=== PATIENT | female | born 1955 | race Caucasian/White ===

== ENCOUNTER → 2019-02-02 | Outpatient (CLI) | payer MEDICARE, BC ==
--- NOTE | 2019-02-02 15:23 | Diagnostic Imaging Report ---
EXAMINATION: MRI of the thoracic spine without contrast HISTORY: Mid back pain COMPARISON: None. TECHNIQUE: Sagittal T1 without contrast, T2, and STIR; axial T2. Coronal T2. FINDINGS: Curvature: Normal kyphosis. Vertebrae: No evidence of recent fracture, infection, or neoplasm. Small benign hemangiomas in the right posterolateral T7 vertebral body. Discs: No significant degenerative changes, no disc herniations, no spinal canal or foraminal stenosis. Spinal canal: No mass or abnormal blood vessels. Spinal cord: Normal size and signal intensity. Foramina: Unremarkable. Paraspinal soft tissues: Unremarkable. Proximal ribs: No abnormal signal intensity. IMPRESSION: No thoracic spine abnormalities to explain the patient's symptoms. Signed by: Dr. Sharona Mendez M.D. on 02/02/2019 3:20 PM
--- NOTE | 2019-02-02 15:36 | Diagnostic Imaging Report ---
EXAMINATION: MRI of the lumbar spine without contrast HISTORY: Mid low back pain for the last 1 1/2 months COMPARISON: None. TECHNIQUE: Sagittal T1, T2, STIR; axial T2 and proton density. FINDINGS: It is assumed that there are 5 lumbar vertebrae. Curvature/Alignment: Normal lordosis. Vertebrae: -Prominent chronic depression of the inferior endplate of L3 with decreased vertebral body height centrally by approximately 40%, no posterior retropulsion or canal stenosis, this may represent sequela from remote trauma, relation with past medical history in comparison to prior studies if available is recommended. -Otherwise no evidence of recent fracture, infection, or neoplasm. Conus: Normal, terminating at L1 Cauda equina: Unremarkable. Lower thoracic: Unremarkable. Paraspinal soft tissues: Unremarkable. Degenerative changes: L1-L2: Unremarkable. L2-L3: Minimal symmetric disc bulge without spinal canal or foraminal stenosis. L3-L4: Minimal symmetric disc bulge without canal or foraminal stenosis. L4-L5: Decreased disc height and T2 signal intensity, asymmetric to the right disc osteophyte complex formation. Mild bilateral facet arthrosis. Right laminectomy defect with expected minimal retraction of the thecal sac, no evidence of recurrent disc herniation or significant scar tissue formation at this level. Mild right foraminal narrowing. No evidence of neurocompression. L5-S1: Mild decreased disc height and T2 signal intensity as well as facet arthrosis. Left laminotomy defect, no disc herniation or scar tissue formation. IMPRESSION: 1. Mild degenerative foraminal stenosis on the right at L4-L5. No evidence of neurocompression. 2. Postoperative changes at L4-5 and L5-S1 without recurrent disc herniation or scar tissue formation. 3. Mild chronic central compression deformity of the L3 vertebral body as detailed above. No acute fractures. Signed by: Dr. Sharona Mendez M.D. on 02/02/2019 3:32 PM
== END ==
LOC: MRI 13:15
PROVIDERS: ATTEND Internal Medicine
DX: M54.5 Low back pain (principal); M54.6 Pain in thoracic spine
CPT/HCPCS: 72146; 72148

== ENCOUNTER → 2019-12-04 | Outpatient (CLI) | payer MEDICARE, BC, OTHER | LOC: DX 10:56 | PROVIDERS: ATTEND Internal Medicine | DX: K21.00 Gastro-esophageal reflux disease with esophagitis, without bleeding (principal); Z11.59 Encounter for screening for other viral diseases | CPT/HCPCS: 74246; U0002 ==

== ENCOUNTER → 2022-08-04 | Day surgery (SDC) | payer MEDICARE, BC ==
[2022-07-30 13:57] LABS: BASOPHILS # (AUTO) 0.1 (0.0-0.1); BASOPHILS % 1.2 % (0.0-1.0); EOSINOPHILS # (AUTO) 0.3 (0.0-0.4); EOSINOPHILS % 5.2 % (0.0-6.0); HEMOGLOBIN 11.7 g/dL (12.0-16.0); LYMPHOCYTES # (AUTO) 1.5 (1.0-3.2); LYMPHOCYTES % 31.8 % (18.0-39.1); MEAN CORPUSCULAR HEMOGLOBIN 25.7 pg (28-32); MEAN CORPUSCULAR HGB CONC 31.6 g/dL (31-35); MEAN CORPUSCULAR VOLUME 81.1 fL (81-99); MONOCYTES # (AUTO) 0.3 (0.2-0.8); MONOCYTES % 6.9 % (4.4-11.3); NEUTROPHILS # (AUTO) 2.6 (2.1-6.9); NEUTROPHILS % 54.9 % (38.7-80.0); PLATELET COUNT 376 x10e3/uL (140-360); RED BLOOD COUNT 4.56 x10e6/uL (3.6-5.1); RED CELL DISTRIBUTION WIDTH 14.7 % (11.7-14.4)
[~2022-08-04] MED LIST: ACETAMINOPHEN 1000 MG/100 ML 100 ML IV ONE; AMITIZA8 MCG PO; AMITRIPTYLINE H10 MG PO; BENADRYL25 M1 PO; CALCIUM MAGNES1 EAC2 PO; CEFAZOLIN SODIUM 2 GM ONE; CYCLOBENZAPRINE5 MG PO; DEXAMETHASONE SOD PHOS INJ 4 MG/ML SDV ONE; EPINEPHRINE 1 MG/ML 30ML VIAL ONE; FENTANYL CITRATE/PF 100MCG/2 ML INJ ONE; FOLIC ACID0.4 MG PO; GLYCOPYRROLATE INJ 0.2 MG/ML VIAL ONE; LACTATED RINGER'S 1,000 ML ONE; LIDOCAINE HCL 2% LOCAL INJ 5 ML SDV VIAL INJ ONE; METHOCARBAMOL 100MG/1ML 10ML VIAL ONE; MIDAZOLAM HCL 2 MG/2 ML VIAL ONE; NAPROSYN500 MG PO; NEOSTIGMINE 1 MG/ML 10ML VIAL ONE; NORCO PO; ONDANSETRON HCL INJ 2MG/ML 2ML 2 MG/ML VIAL ONE; PHENYLEPHRINE HCL 1% 10 MG/ML VIAL ONE; POVIDONE IODINE 0.05% 0.05 % ML PO ONE; PROPOFOL IV EMULSION 10 MG/ML 20 ML VIAL ONE; ROCURONIUM BROMIDE 10 MG/ML 5ML VIAL IV ONE; ROPIVACAINE 0.5% 5 MG/ML 30 ML SDV ONE; SEVOFLURANE INHAL SOLN 250 ML PEN BTL ONE; SODIUM CHLORIDE 0.9% 100 ML ONE; TRANEXAMIC ACID 0 ML ONE; VITAMIN B-121000 MCG IM; VITAMIN D PO; VITAMIN D310 MCG PO; ZOLPIDEM TARTRAT5 MG PO
[2022-08-04 08:50] VITALS: BP 117/69; PULSE 70; RESP 16; O2SAT 98
== END | disposition home or self-care (01) ==
LOC: OR 05:39
PROVIDERS: ATTEND Orthopaedic Surgery
DX: M75.122 Complete rotator cuff tear or rupture of left shoulder, not specified as traumatic (principal); M19.012 Primary osteoarthritis, left shoulder; M75.02 Adhesive capsulitis of left shoulder; M06.9 Rheumatoid arthritis, unspecified; D64.9 Anemia, unspecified; M81.0 Age-related osteoporosis without current pathological fracture; K28.9 Gastrojejunal ulcer, unspecified as acute or chronic, without hemorrhage or perforation; Z01.810 Encounter for preprocedural cardiovascular examination; Z01.812 Encounter for preprocedural laboratory examination; Z01.818 Encounter for other preprocedural examination; Z79.899 Other long term (current) drug therapy
CPT/HCPCS: 29824; 29826; 29827; 36415; 71046; 85025; 93005; C1713 ×2; J0131; J1100; J2001; J2250; J2370; J2405; J2704; J2710; J2795; J2800; J3010; J7050; J7121

== ENCOUNTER → 2023-10-15 | Outpatient (REF) | payer MEDICARE, BC ==
[~2023-10-15] MED LIST changes: -ACETAMINOPHEN 1000 MG/100 ML 100 ML IV ONE; -CEFAZOLIN SODIUM 2 GM ONE; -DEXAMETHASONE SOD PHOS INJ 4 MG/ML SDV ONE; -EPINEPHRINE 1 MG/ML 30ML VIAL ONE; -FENTANYL CITRATE/PF 100MCG/2 ML INJ ONE; -GLYCOPYRROLATE INJ 0.2 MG/ML VIAL ONE; -LACTATED RINGER'S 1,000 ML ONE; -LIDOCAINE HCL 2% LOCAL INJ 5 ML SDV VIAL INJ ONE; -METHOCARBAMOL 100MG/1ML 10ML VIAL ONE; -MIDAZOLAM HCL 2 MG/2 ML VIAL ONE; -NEOSTIGMINE 1 MG/ML 10ML VIAL ONE; -ONDANSETRON HCL INJ 2MG/ML 2ML 2 MG/ML VIAL ONE; -PHENYLEPHRINE HCL 1% 10 MG/ML VIAL ONE; -POVIDONE IODINE 0.05% 0.05 % ML PO ONE; -PROPOFOL IV EMULSION 10 MG/ML 20 ML VIAL ONE; -ROCURONIUM BROMIDE 10 MG/ML 5ML VIAL IV ONE; -ROPIVACAINE 0.5% 5 MG/ML 30 ML SDV ONE; -SEVOFLURANE INHAL SOLN 250 ML PEN BTL ONE; -SODIUM CHLORIDE 0.9% 100 ML ONE; -TRANEXAMIC ACID 0 ML ONE
== END ==
LOC: MRI 12:52
PROVIDERS: ATTEND Nurse Practitioner Primary Care
DX: M54.16 Radiculopathy, lumbar region (principal)
CPT/HCPCS: 72148

== ENCOUNTER 2024-03-02 17:12 | Emergency (ER) | payer MEDICARE, BC ==
[~2024-03-02] VITALS: Ht 162.6 cm; Wt 78.0 kg
[2024-03-02 21:19] VITALS: PULSE 86; RESP 18; TEMP 98.3; O2SAT 100
== END 2024-03-02 21:56 | disposition home or self-care (01) ==
LOC: ER 17:40
DX: S06.0X0A Concussion without loss of consciousness, initial encounter (principal); R51.9 Headache, unspecified; D64.9 Anemia, unspecified; M06.9 Rheumatoid arthritis, unspecified; M54.9 Dorsalgia, unspecified; G89.29 Other chronic pain; Z87.19 Personal history of other diseases of the digestive system
CPT/HCPCS: 70450; 72125; 72128; 72131; 72192; 99283